=== PATIENT | male | born 1990 | race African-American/Black ===

== ENCOUNTER 2016-12-18 17:17 | Emergency (ER) | payer SELFPAY ==
[~2016-12-18] VITALS: Ht 172.7 cm; Wt 63.5 kg
[2016-12-18 17:24] VITALS: BP 114/78
--- NOTE | 2016-12-18 17:29 | PHYS DOC ---
Past Medical History Past Medical History: No Pertinent History Past Surgical History: No Surgical History Alcohol Use: None Drug Use: Marijuana Adult General Chief Complaint Chief Complaint: SUTURE/STAPLE REMOVAL HPI HPI Patient is a 26 year old male who presents for suture removal from the upper lip. Patient has had the sutures for 6 days. Patient denies any issues with the laceration site. Review of Systems Review of Systems Constitutional: Denies fever or chills [] Musculoskeletal: Denies back pain or joint pain [] Integument: suture removal from the upper lip Neurologic: Denies headache, focal weakness or sensory changes [] Allergies Allergies Allergies Coded Allergies Type Severity Reaction Last Updated Verified No Known Drug Allergies 08/22/14 No Physical Exam Physical Exam Constitutional: Well developed, well nourished, no acute distress, non-toxic appearance. [] Skin: Upper lip with 2 interrupted sutures. Laceration site is well approximated , no signs of infection. Back: No tenderness, no CVA tenderness. [] Extremities: No tenderness, no cyanosis, no clubbing, ROM intact, no edema. [] Neurologic: Alert and oriented X 3, normal motor function, normal sensory function, no focal deficits noted. [] Psychologic: Affect normal, judgement normal, mood normal. [] Current Patient Data Vital Signs Vital Signs Date Time Temp Pulse Resp B/P (MAP) Pulse Ox O2 Delivery O2 Flow Rate FiO2 12/18/16 17:24 98.3 72 16 99 Room Air 98.3 EKG EKG [] Radiology/Procedures Radiology/Procedures [] Course & Med Decision Making Course & Med Decision Making Pertinent Labs and Imaging studies reviewed. (See chart for details) Two sutures were removed from patient's left upper lip by me. Provided return precautions. Dragon Disclaimer Dragon Disclaimer This electronic medical record was generated, in whole or in part, using a voice recognition dictation system. Departure Departure Impression: Primary Impression: Visit for suture removal Disposition: HOME, SELF-CARE Condition: STABLE Referrals: NO PCP (PCP) follow up with your doctor in 1 week as needed Patient Instructions: Suture Removal-Brief Additional Instructions: We removed stitches from your upper lip. Keep the area clean and dry. Follow-up with your doctor as needed. BEN PINA APRN Dec 18, 2016 17:29
== END 2016-12-18 17:36 | disposition home or self-care (01) ==
LOC: ER 17:17
DX: S01.511D Laceration without foreign body of lip, subsequent encounter (principal); X58.XXXD Exposure to other specified factors, subsequent encounter; Y92.89 Other specified places as the place of occurrence of the external cause; Y99.8 Other external cause status
CPT/HCPCS: 99281